=== PATIENT | female | born 1975 | race Caucasian/White ===

== ENCOUNTER → 2016-11-14 | Outpatient (CLI) | payer BC ==
[~2016-11-14] MED LIST: AMT25T PO; AZIT-21 PO; CATHETER FLUSH 10 ML SYR IV PRN; CODE118S2 PO; DCS100C PO; HYDR-34 PO; HYDR12.56 PO; HYDR1TAB PO; IBP600T1 PO; IOHEXOL 350 MG/ML 100 ML (OMNIPAQUE 350) VIAL IV ONE; NORE5TAB2 PO; NS 100 ML (IVPB) BAG IV ONE; ONDA4TAB11 PO; OXYB5TAB9 PO; OXYC-12 PO
--- NOTE | 2016-11-14 13:11 | Diagnostic Imaging Report ---
PROCEDURE: CT abdomen and pelvis with contrast. TECHNIQUE: Multiple contiguous axial images were obtained through the abdomen and pelvis after administration of intravenous contrast. INDICATION: Right-sided lower chest and abdominal pain. Nausea. FINDINGS: The lung bases appear unremarkable. The liver demonstrates a 2.9 x 2.2 x 2 cm mass with peripheral enhancement which demonstrates progressive filling on the venous and delayed phase imaging in favor of a hemangioma. Cholecystectomy clips are seen. The spleen is normal in size. The pancreas parenchyma appears unremarkable. Adjacent to the pancreatic head, there is a partially air-filled 2.5 cm lesion probably related to a duodenal diverticulum. The adrenal glands appear unremarkable. The kidneys have symmetric enhancement and contrast excretion. There is no hydronephrosis. The abdominal aorta is normal in caliber. No para-aortic significantly enlarged lymph node is seen. No bowel obstruction. The appendix appears normal. No significant free fluid or fluid collection in the abdomen or pelvis seen. At the level of the umbilicus, there is a subcutaneous area of soft tissue thickening measuring 2.3 x 2.1 x 1 cm in size. Etiology is uncertain. This could be related to scarring. This would be accessible for physical exam. A soft tissue mass is not excluded. The osseous structures appear grossly unremarkable. IMPRESSION: 1. A 2.9 cm left hepatic lobe mass with features in favor of hemangioma. Confirmation with a liver mass protocol MRI is recommended. 2. Subcutaneous soft tissue nodule extending to the skin at the umbilicus level is indeterminate. This could be related to scarring. Focal physical examination and if concerning, biopsy is recommended. Report was stat faxed to office of Dr. Douglas @ 1:01 PM/tre. Dictated by: Dictated on workstation # [id number]
== END ==
LOC: RAD 09:59
PROVIDERS: ATTEND Internal Medicine
DX: K76.9 Liver disease, unspecified (principal); R10.33 Periumbilical pain
CPT/HCPCS: 74177

== ENCOUNTER → 2016-11-26 | Outpatient (CLI) | payer BC ==
[~2016-11-26] MED LIST changes: -CATHETER FLUSH 10 ML SYR IV PRN; +GADOXETATE 2.5 MMOL/10 ML (EOVIST) IV ONE; -IOHEXOL 350 MG/ML 100 ML (OMNIPAQUE 350) VIAL IV ONE; -NS 100 ML (IVPB) BAG IV ONE
--- NOTE | 2016-11-26 17:04 | Diagnostic Imaging Report ---
PROCEDURE: MR imaging abdomen with and without contrast. TECHNIQUE: Multiplanar, multisequence MR imaging of the abdomen was performed with and without contrast. INDICATION: Right mid and upper abdominal pain. Hepatic lesions seen in the left lobe on CT from 11/14/16. 9 mL of Eovist is administered intravenously. FINDINGS: The left hepatic lobe lesion seen on CT scan is bright on T2 with lobulated margins and measures 2.5 x 2.3 x 2.1 cm. It demonstrates discontinuous peripheral nodular pattern of enhancement with partial fill-in on additional phases. It is not enhancing on the hepatocellular phase performed at 20 minutes after the exam. The findings are suggestive of a hemangioma. No other hepatic lesion is identified. The spleen is not enlarged. The pancreas parenchyma appears unremarkable. An adjacent air-filled lesion measuring 2.4 cm in size is compatible with a duodenal diverticulum abutting posterior aspect of the pancreatic head. The adrenals appear unremarkable. The kidneys have symmetric enhancement and contrast excretion. The biliary tree is normal in caliber. The pancreatic ducts are not dilated. The bone marrow signal in the lumbar spine appears unremarkable. IMPRESSION: 2.5 cm left hepatic lobe mass with features compatible with hemangioma. Dictated by: Dictated on workstation # [id number]
== END ==
LOC: RAD 10:16
PROVIDERS: ATTEND Internal Medicine
DX: R16.0 Hepatomegaly, not elsewhere classified (principal)
CPT/HCPCS: 74183

== ENCOUNTER 2017-01-22 05:37 | Outpatient (CLI) | payer BC ==
[~2017-01-22] VITALS: Ht 154.9 cm; Wt 99.8 kg
[~2017-01-22 05:37] MED LIST changes: -GADOXETATE 2.5 MMOL/10 ML (EOVIST) IV ONE
[2017-01-22] MEDS ORDERED: ESTR1TAB27 PO (10:52)
== END 2017-01-22 11:01 ==
LOC: PREOP 05:37
PROVIDERS: ATTEND Surgery
DX: Z01.818 Encounter for other preprocedural examination (principal); R19.5 Other fecal abnormalities; R10.11 Right upper quadrant pain

== ENCOUNTER 2017-01-27 07:37 | Day surgery (SDC) | payer BC ==
[~2017-01-27] VITALS: Ht 154.9 cm; Wt 99.8 kg
[~2017-01-27 07:37] MED LIST changes: +ESTR1TAB27 PO
[2017-01-27 07:55] VITALS: BP 110/62
[2017-01-27] MEDS ORDERED: LACTATED RINGERS 1,000 ML IV ONE (07:58)
[2017-01-27] MEDS ORDERED: LACTATED RINGERS 1,000 ML IV PRN (08:00)
[2017-01-27] MEDS ORDERED: PROPOFOL INJECTION 50 ML IV ONE (08:19)
[2017-01-27] MEDS ORDERED: MIDAZOLAM 2 MG/2 ML (VERSED) VIAL ONE (08:41)
--- NOTE | 2017-01-27 09:14 | Discharge Inst-Simple/Standard ---
Discharge Inst-Standard Patient Instructions/Follow Up Plan of Care/Instructions/FU: Increase Fiber in diet- 25g. Follow up with Dr. Santillan in Clinic in 2 weeks. Repeat colonoscopy in 5 years or sooner if changes to current condition. Activity as Tolerated: Yes Discharge Diet: Other Diet (High fiber) MIA NINO APRN Jan 27, 2017 09:14
--- NOTE | 2017-01-27 09:17 | Progress Note-Post Operative ---
Post-Operative Progess Note Surgeon (s)/Bench Scientist (s) Surgeon JUNIOR GALVEZ DO Bench Scientist: na Pre-Operative Diagnosis change in bowel habits right upper quadrant/side abdominal pain Post-Operative Diagnosis transverse colon polyp Procedure & Operative Findings Date of Procedure 01/27/17 Procedure Performed/Findings colonoscopy with hot bx polypectomy and cold bx sigmoid colon Anesthesia Type per bridge worker apprentice Estimated Blood Loss Estimated blood loss (mL): none Specimens/Packing Specimens Removed transverse colon polyp, sigmoid colon biopsy JUNIOR GALVEZ DO Jan 27, 2017 09:16
[2017-01-27 09:35] VITALS: BP 127/60
[2017-01-27 10:00] VITALS: BP 120/86
[2017-01-27 10:55] VITALS: BP 127/60
--- NOTE | 2017-01-27 17:39 | OPERATIVE REPORT ---
PROCEDURE PHYSICIAN: JUNIOR GALVEZ DATE OF PROCEDURE: 01/27/2017 PREOPERATIVE DIAGNOSES: 1. Change in bowel habits. 2. Right upper quadrant/side abdominal pain. POSTOPERATIVE DIAGNOSIS: Transverse colon polyp. PROCEDURE: Colonoscopy with hot biopsy polypectomy of the transverse colon and cold biopsy of sigmoid colon. SURGEON: Jacque. ANESTHESIA: Per TUG MASTER. ESTIMATED BLOOD LOSS: None. COMPLICATIONS: None. INDICATIONS: The patient is a 42-year-old female who has had change in bowel habits. She has also been having some right upper quadrant/right-sided abdominal pain. Her primary care physician recommended her to have a colonoscopy. She understands the risk and benefits of the procedure and wished to proceed with the procedure. Consent was signed on the chart. PROCEDURE: The patient was taken to the endoscopy suite, placed in left lower recumbent position. Timeout was performed. Digital rectal exam was performed. There were no palpable polyps, masses or ulcerations. The scope was inserted in the rectum, advanced all of the way to the cecum with minimal difficulty. The prep was adequate. There were no polyps, masses or ulceration within the cecum or ascending colon. In the more distal transverse colon, there was a small polyp, which hot biopsy polypectomy was performed. The scope was then continued be slowly retracted back. There were no polyps, masses or ulcerations within the descending colon and sigmoid colon. There was some slight mucosal changes which appeared to be slightly just edematous changes, which cold biopsy was obtained of the sigmoid colon in this area. The scope was continued to be slowly retracted back noting no other pathology. The scope was retroflexed in the rectum, which demonstrated no other pathology. The scope was returned to its normal position and slowly withdrawn until completely removed. RECOMMENDATIONS: The patient is recommended to start a high fiber diet. She will follow-up in the office in 2 weeks to discuss pathology results. Due to the polyp, would recommend repeat colonoscopy in 5 years. If she has any problems prior to that, she should be reevaluated at that time. Job ID: [id number] Dictated Date: 01/27/2017 09:20:10 Ticket Collector Date: 01/27/2017 17:31:42 / karley
== END 2017-01-27 10:00 | disposition home or self-care (01) ==
LOC: ENDO 07:37
PROVIDERS: ATTEND Surgery
DX: R19.4 Change in bowel habit (principal); K63.5 Polyp of colon; E66.9 Obesity, unspecified; Z68.41 Body mass index [BMI] 40.0-44.9, adult; Z87.891 Personal history of nicotine dependence; Z90.710 Acquired absence of both cervix and uterus

== ENCOUNTER → 2017-04-13 | Outpatient (CLI) | payer BC ==
--- NOTE | 2017-04-13 09:10 | Diagnostic Imaging Report ---
PROCEDURE: MRI left joint lower extremity without contrast. TECHNIQUE: Multiplanar, multisequence non contrast-enhanced MRI of the left lower extremity was accomplished. INDICATION: Painful, following fall. I have no priors. FINDINGS: There is very mild focal marrow edema involving the extra-articular portion of the medial femoral condyle, no fracture. There is lateral tilt and subluxation of the patella without disruption of the retinacula, it is not frankly dislocated. The patellar and trochlear articular cartilage well maintained. There is some mild edema superficial and deep to the iliotibial band. Patellar and quadriceps tendons are intact and the cruciate and collateral ligaments are intact. Some heterogeneous intrasubstance signal within the posterior horn medial meniscus likely owing to an element of intrasubstance degeneration no linear tear. Extrusion or meniscal displacement of the roots appeared intact. There is no loose body. No pathological joint fluid volume. No solid or cystic mass within the popliteal fossa. Cruciate and collateral ligaments are intact. Patellar and quadriceps tendons intact. IMPRESSION: Mild focal contusion medial femoral condyle extra-articular. Patellar subluxation and tilt without substantial articular cartilage loss and intact retinaculum. Some edema and fluid deep and superficial to the iliotibial band without its rupture. No tendon or ligament rupture. Intact menisci normal aside from posterior horn medial meniscal intrasubstance degeneration. Dictated by: Dictated on workstation # [id number]
== END ==
LOC: RAD 07:54
PROVIDERS: ATTEND Nurse Practitioner Family
DX: S83.012A Lateral subluxation of left patella, initial encounter (principal); W19.XXXA Unspecified fall, initial encounter; Y99.8 Other external cause status
CPT/HCPCS: 73721

== ENCOUNTER → 2017-10-31 | Outpatient (CLI) | payer SELFPAY ==
--- NOTE | 2017-10-31 12:12 | Diagnostic Imaging Report ---
INDICATION: RIB PAIN ON LEFT SIDE. TECHNIQUE: PA view of the chest, frontal and oblique views of the left ribs. COMPARISON: Chest x-ray from 04/17/2009 FINDINGS: Lung volumes are mildly low. No focal consolidation is seen. There is no pleural effusion or pneumothorax. The cardiomediastinal silhouette is normal in size and contour. No acute displaced rib fracture is seen. IMPRESSION: No acute displaced rib fracture. Low lung volumes with no acute pulmonary abnormality seen. Dictated by: Dictated on workstation # [id number]
== END ==
LOC: RAD 11:27
PROVIDERS: ATTEND Nurse Practitioner Family
DX: J01.00 Acute maxillary sinusitis, unspecified (principal)
CPT/HCPCS: 71101

== ENCOUNTER → 2018-03-02 | Outpatient (CLI) | payer OTHER | LOC: LAB 08:51 | PROVIDERS: ATTEND Nurse Practitioner Community Health | DX: E16.2 Hypoglycemia, unspecified (principal); Z83.3 Family history of diabetes mellitus | CPT/HCPCS: 36415; 82951; 82952; 82962 ==

== ENCOUNTER → 2018-03-19 | Outpatient (CLI) | payer OTHER ==
--- NOTE | 2018-03-22 09:50 | Diagnostic Imaging Report ---
Indication: Screening. The current study was also evaluated with a Computer Aided Detection (CAD) system. Comparison made with prior examination 04/29/2016 3-D tomosynthesis is also performed and reviewed. Findings: There are scattered fibroglandular densities bilaterally. There are unchanged small nodular densities in the upper outer aspect of both breasts. A few benign type calcifications. There is no new dominant mass, spiculated lesion or suspicious calcification identified. Impression: Category 2 benign. ACR BI-RADS Category 2: Benign findings. Result letter will be mailed to the patient. Note: At least 10% of breast cancer is not imaged by mammography. Dictated by: Dictated on workstation # [id number]
== END ==
LOC: RAD 15:38
PROVIDERS: ATTEND Nurse Practitioner
DX: Z12.31 Encounter for screening mammogram for malignant neoplasm of breast (principal)
CPT/HCPCS: 77067

== ENCOUNTER → 2019-08-12 | Outpatient (CLI) | payer OTHER ==
--- NOTE | 2019-08-12 08:46 | Diagnostic Imaging Report ---
Digital mammogram. Indication: Bilateral screening. The study was compared to the prior exam of 03/19/2018 and 04/29/2016. At this time there are no current complaints. There are scattered fibroglandular densities in both breasts which could obscure a lesion. Overall, there has been no significant change. There is no primary or secondary sign of malignancy. There are now bilateral metallic nipple bars in place. Impression: There is no evidence of malignancy. ACR BI-RADS Category 1: Negative. Result letter will be mailed to the patient. Note: At least 10% of breast cancer is not imaged by mammography. Dictated by: Dictated on workstation # [id number]
== END ==
LOC: RAD 07:10
PROVIDERS: ATTEND Obstetrics & Gynecology
DX: Z12.31 Encounter for screening mammogram for malignant neoplasm of breast (principal)
CPT/HCPCS: 77067

== ENCOUNTER → 2022-03-07 | Outpatient (CLI) | payer BC ==
--- NOTE | 2022-03-10 09:06 | Diagnostic Imaging Report ---
INDICATION: Routine screening. COMPARISON: 08/12/2019 and 03/19/2018. TECHNIQUE: 2D and 3D bilateral screening mammography was performed with CAD. FINDINGS: Scattered fibroglandular densities are identified bilaterally. The intraparenchymal lymph node in the outer right breast is stable. A density in the retroareolar and outer aspect of the right breast does appear to be more prominent on today's study. Additional views are recommended. The benign nodule in the upper outer left breast is stable. No malignant-appearing microcalcifications are seen. The axillae are unremarkable. IMPRESSION: Right breast density. Additional views are recommended for further evaluation. ACR BI-RADS Category 0: Incomplete. (Needs additional imaging evaluation). Result letter will be mailed to the patient. Note: At least 10% of breast cancer is not imaged by mammography. Dictated by: Dictated on workstation # [id number]
== END ==
LOC: RAD 15:00
PROVIDERS: ATTEND Nurse Practitioner Family
DX: Z12.31 Encounter for screening mammogram for malignant neoplasm of breast (principal); R92.2 Inconclusive mammogram
CPT/HCPCS: 77063; 77067